=== PATIENT | male | born 1980 | race Hispanic/Latino ===

== ENCOUNTER 2022-03-11 17:05 | Emergency (ER) | payer SELFPAY ==
--- NOTE | 2022-03-11 17:35 | Emergency Department Report ---
ED General Adult HPI - General Chief complaint: Eye Problems Stated complaint: BI EYE SWELLING PUI?: No Time Seen by Provider: 03/11/22 17:30 Source: EMS Mode of arrival: Stretcher Limitations: No Limitations - History of Present Illness Initial comments: Patient is a 41-year-old male who presents emergency room with complaints of bilateral eye swelling. Patient states it started earlier today at 8 AM. Patient states he noticed that after waking up this morning. Patient states that he has uncontrolled blood pressure is not taking any medications for. Patient states he has pain in both eyes but patient was given Tylenol and he is not having any pain at this time.. Patient states he had a headache this morning with the Tylenol took care of it. Patient states he feels like his visual angulo are getting smaller. Patient denies fever and chills. Patient denies chest pain or shortness of breath. Patient denies headache. Patient denies trauma. Patient denies falling. Patient denies recent travel. Patient denies recent international travel. Patient denies exposure to the novel coronavirus. Patient denies sick contacts. Patient denies fever and chills. Patient denies cough. Patient denies diarrhea. Patient denies coming in contact with anybody with symptoms of the novel coronavirus. Patient is currently in shelter and brought to the emergency room by EMS. Report received from EMS. Patient has a shelter please officer at bedside. -: Sudden Severity scale (0 -10): 0 Quality: aching Improves with: medication Worsens with: none Associated Symptoms: denies other symptoms. denies: confusion, chest pain, cough, diaphoresis, fever/chills, headaches, loss of appetite, malaise, nausea/vomiting, rash, seizure, shortness of breath, syncope, weakness Treatments Prior to Arrival: other (Tylenol) - Related Data Allergies Allergy/AdvReac Type Severity Reaction Status Date / Time No Known Allergies Allergy Verified 03/11/22 17:26 ED Review of Systems ROS: Stated complaint: BI EYE SWELLING Other details as noted in HPI Constitutional: denies: chills, fever Eyes: denies: eye pain, eye discharge, vision change ENT: denies: ear pain, throat pain Respiratory: denies: cough, shortness of breath, wheezing Cardiovascular: denies: chest pain, palpitations Endocrine: no symptoms reported Gastrointestinal: denies: abdominal pain, nausea, diarrhea Genitourinary: denies: urgency, dysuria Musculoskeletal: denies: back pain, joint swelling, arthralgia Skin: denies: rash, lesions Neurological: denies: headache, weakness, paresthesias Psychiatric: denies: anxiety, depression Hematological/Lymphatic: denies: easy bleeding, easy bruising ED Past Medical Hx - Past Medical History Previous Medical History?: Yes Hx Hypertension: Yes - Surgical History Past Surgical History?: No - Family History Family history: no significant - Social History Smoking Status: Never Smoker Substance Use Type: None ED Physical Exam - General Limitations: No Limitations General appearance: alert - Head Head exam: Present: atraumatic, normocephalic - Eye Eye exam: Present: normal appearance, PERRL, periorbital swelling, periorbital tenderness Pupils: Present: normal accommodation - ENT ENT exam: Present: mucous membranes moist - Neck Neck exam: Present: normal inspection - Respiratory Respiratory exam: Present: normal lung sounds bilaterally. Absent: respiratory distress, wheezes, rales - Cardiovascular Cardiovascular Exam: Present: regular rate, normal rhythm. Absent: systolic murmur, diastolic murmur, rubs, gallop - GI/Abdominal GI/Abdominal exam: Present: soft, normal bowel sounds - Rectal Rectal exam: Present: deferred - Extremities Exam Extremities exam: Present: normal inspection - Back Exam Back exam: Present: normal inspection - Neurological Exam Neurological exam: Present: alert, oriented X3 - Psychiatric Psychiatric exam: Present: normal affect, normal mood - Skin Skin exam: Present: warm, dry, intact, normal color. Absent: rash ED Course Vital Signs 03/11/22 03/11/22 17:21 21:25 Temperature 98.4 F 98.0 F Pulse Rate 92 H 91 H Respiratory 16 18 Rate Blood Pressure 175/120 162/120 [Left] O2 Sat by Pulse 98 97 Oximetry - Reevaluation(s) Reevaluation #1: Patient has been accepted to another hospital. I discussed all results with patient. I discussed plan of care with patient. Patient agrees with plan of care and transfer. Patient will be transferred to the receiving hospital. 03/11/22 23:10 - Consultations Consultation #1: I discussed case with Dr. Tse, neurosurgery. Dr. Cheung recommends transfer and 10 mg of Decadron. 03/11/22 20:12 Consultation #2: After talking with multiple facilities. [facility] has accepted the patient, Dr. Baker accepted the patient be transferred ER to ER. 03/11/22 23:01 ED Medical Decision Making - Lab Data Result diagrams: 03/11/22 17:41 03/11/22 17:41 - Radiology Data Radiology results: report reviewed, image reviewed CT MAXILLOFACIAL WITHOUT CONTRAST INDICATION / CLINICAL INFORMATION: Bilateral periorbital edema. TECHNIQUE: All CT scans at this location are performed using CT dose reduction for ALARA by means of automated exposure control. COMPARISON: None available. FINDINGS: Innumerable abnormalities are identified. Subcutaneous masses are present in the scalp. The largest scalp lesion is in the right parietal region. Multiple masses are seen infiltrating the parotid glands. Lesions in the superior aspect of the maxillary sinuses are observed. Multiple intraorbital mass lesions are also identified. Many of these lesions are associated with bony remodeling of skull base neuroforamina. 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 There is expansion of the infraorbital nerve canals with remodeling of the orbital floors bilaterally. Multiple intraorbital mass lesions resulting in exophthalmos bilaterally.. Expansion of the foramen ovale and foramen rotundum is noted. There is expansion of the superior orbital fissures. FACIAL BONES: Bone remodeling is observed in response to the multiple neurofibromata alluded to above. There is no indication of facial fracture. GREENKEEPER SPACES: A large neurofibroma is seen between the pterygoid muscle and right mandibular ramus. Innumerable additional neurofibroma are present. SALIVARY GLANDS: Infiltrative changes and the parotid glands likely represent neurofibromata along the course of the facial nerve branches. Submandibular salivary glands have an unremarkable appearance. PARANASAL SINUSES: Masses protruding into the maxillary sinuses from the floors of the orbits are present secondary to infraorbital nerve neurofibromas. Paranasal sinuses are free from inflammatory mucosal disease. NASAL CAVITY: No abnormality ORBITS: As described above there is bilateral exophthalmos secondary to mul tiple orbital neurofibromata. TEMPORAL BONES:Visualized mastoid air cells and the middle ear cavities are normally pneumatized. VISUALIZED INTRACRANIAL STRUCTURES: No significant abnormality. IMPRESSION: 1. Bilateral exophthalmos secondary to multifocal intraorbital masses which almost certainly represent neurofibromata. 2. Neurofibromatosis type I with plexiform neurofibromas. CT HEAD WITHOUT CONTRAST INDICATION / CLINICAL INFORMATION: coates. neurofibromatosis. TECHNIQUE: All CT scans at this location are performed using CT dose reduction for ALARA by means of automated exposure control. COMPARISON: CT orbits/facial bones also dated 03/11/2022 FINDINGS: HEMORRHAGE: No evidence of intracranial hemorrhage or extra-axial fluid collection. EXTRA-AXIAL SPACES: Cortical sulci, sylvian fissures and basilar cisterns have an unremarkable appearance. VENTRICULAR SYSTEM: The third and lateral ventricles are of normal size and configuration. CEREBRAL PARENCHYMA: No areas of abnormal brain parenchymal attenuation are identified. There is no indication of recent infarction. MIDLINE SHIFT OR HERNIATION: There is no mass effect. CEREBELLUM / BRAINSTEM: Brainstem and cerebellum have an unremarkable appearance. MIDLINE STRUCTURES:No abnormalities of the pituitary gland or pineal region are identified. INTRACRANIAL VESSELS:No abnormalities are identified on this noncontrast head CT. ORBITS: Bilateral exophthalmos secondary to multiple mass lesions within the orbits. Please refer to CT facial bone report for a more complete description of these findings. SOFT TISSUES of HEAD: Large scalp mass likely represents the presence of a plexiform neurofibroma in the right parieto-occipital region. Similar findings are seen along the lateral margins of the forehead bilaterally. CALVARIUM: The calvarium has an unremarkable appearance. Evaluation of the skull base reveals a bony remodeling along the course of the cranial neuroforamina as described on CT facial bones/orbits dictated separately. PARANASAL SINUSES / MASTOID AIR CELLS: Mass is located in the upper portions the maxillary sinuses likely represent neurofibromata arising from the infraorbital nerves. Paranasal sinuses are free from inflammatory mucosal disease. ADDITIONAL FINDINGS: None. IMPRESSION: 1. No acute intracranial abnormality. 2. Neurofibromatosis type I. Please refer to CT orbits/facial bone report dictated separately. - Medical Decision Making Patient is a 41-year-old male who presents emergency room with eye swelling and visual changes. Patient had labs done which essentially markable. Patient had head CT and patient was CT and it was positive for multiple neurofibromas within the orbits and skull and multiple other sites. I discussed these findings with our neurosurgeon and he is neurosurgeon, Dr. Tse recommended transfer to a facility with neuro-ophthalmology and neurosurgery. I discussed this with [facility] for an extended amount of time and finally found a facility at [facility] to accept the patient. The ER attending, Dr. Baker has accepted the patient to be transferred ER to ER. Patient stable for transfer. Critical care time documented due to the multiple reassessments, prolonged time at the bedside, interpretation of diagnostics and labs receiving hospital. - Differential Diagnosis Periorbital edema, periorbital cellulitis, eye swelling, visual changes Critical Care Time: Yes Critical care time in (mins) excluding proc time.: 80 Critical care attestation.: If time is entered above; I have spent that time in minutes in the direct care of this critically ill patient, excluding procedure time. Critical Care Time: 80 minutes ED Disposition Clinical Impression: Multiple neurofibromas in neurofibromatosis, Visual changes, Blurry vision, Eye swelling, bilateral Optic nerve compression Qualifiers: Laterality: bilateral Qualified Code(s): H47.093 - Other disorders of optic nerve, not elsewhere classified, bilateral Headache Qualifiers: Headache type: unspecified Headache chronicity pattern: acute headache Int ractability: not intractable Qualified Code(s): R51.9 - Headache, unspecified Disposition: 02 [facility] Is pt being admited?: No Does the pt Need Aspirin: No Condition: Critical Time of Disposition: 23:09
[2022-03-11 18:07] LABS: Basophils % (Auto) 0.3 % (0.0-1.8); Eosinophils % (Auto) 0.1 % (0.0-4.3); Hematocrit 44.4 % (35.5-45.6); Hemoglobin 14.7 gm/dl (11.8-15.2); Lymphocytes # (Auto) 1.5 K/mm3 (1.2-5.4); Lymphocytes % (Auto) 17.1 % (13.4-35.0); Mean Corpuscular HGB Conc 33 % (32-34); Mean Corpuscular Volume 88 fl (84-94); Monocytes # (Auto) 0.4 K/mm3 (0.0-0.8); Monocytes % (Auto) 4.1 % (0.0-7.3); Platelet Count 264 K/mm3 (140-440); Red Blood Count 5.05 M/mm3 (3.65-5.03); Red Cell Distribution Width 12.8 % (13.2-15.2)
[2022-03-11 18:23] LABS: Alanine Aminotransferase 23 units/L (7-56); Albumin 4.5 g/dL (3.9-5); BUN/Creatinine Ratio 17; Blood Urea Nitrogen 15 mg/dL (9-20); Calcium 9.8 mg/dL (8.4-10.2); Hemolysis Index 16
--- NOTE | 2022-03-11 19:31 | Cat Scan Report ---
CT MAXILLOFACIAL WITHOUT CONTRAST INDICATION / CLINICAL INFORMATION: Bilateral periorbital edema. TECHNIQUE: All CT scans at this location are performed using CT dose reduction for ALARA by means of automated e xposure control. COMPARISON: None available. FINDINGS: Innumerable abnormalities are identified. Subcutaneous masses are present in the scalp. The largest s calp lesion is in the right parietal region. Multiple masses are seen infiltrating the parotid glands . Lesions in the superior aspect of the maxillary sinuses are observed. Multiple intraorbital mass le sions are also identified. Many of these lesions are associated with bony remodeling of skull base ne uroforamina. These findings indicate a diagnosis of neurofibromatosis type I (von Recklinghausen dise ase). There is expansion of the infraorbital nerve canals with remodeling of the orbital floors bilat erally. Multiple intraorbital mass lesions resulting in exophthalmos bilaterally.. Expansion of the f oramen ovale and foramen rotundum is noted. There is expansion of the superior orbital fissures. FACIAL BONES: Bone remodeling is observed in response to the multiple neurofibromata alluded to above . There is no indication of facial fracture. NUCLEAR REACTOR OPERATOR SPACES: A large neurofibroma is seen between the pterygoid muscle and right mandibular roger us. Innumerable additional neurofibroma are present. SALIVARY GLANDS: Infiltrative changes and the parotid glands likely represent neurofibromata along th e course of the facial nerve branches. Submandibular salivary glands have an unremarkable appearance. PARANASAL SINUSES: Masses protruding into the maxillary sinuses from the floors of the orbits are pre sent secondary to infraorbital nerve neurofibromas. Paranasal sinuses are free from inflammatory muco jenny disease. NASAL CAVITY: No abnormality ORBITS: As described above there is bilateral exophthalmos secondary to multiple orbital neurofibroma ta. TEMPORAL BONES:Visualized mastoid air cells and the middle ear cavities are normally pneumatized. VISUALIZED INTRACRANIAL STRUCTURES: No significant abnormality. IMPRESSION: 1. Bilateral exophthalmos secondary to multifocal intraorbital masses which almost certainly repres ent neurofibromata. 2. Neurofibromatosis type I with plexiform neurofibromas. Signer Name: Justin Arndt MD Signed: 03/11/2022 7:27 PM Workstation Name: [id number]
[2022-03-11] MEDS ORDERED: dexAMETHasone 20 MG/5 ML VIAL IV ONE (20:11)
--- NOTE | 2022-03-11 21:06 | Cat Scan Report ---
CT HEAD WITHOUT CONTRAST INDICATION / CLINICAL INFORMATION: coates. neurofibromatosis. TECHNIQUE: All CT scans at this location are performed using CT dose reduction for ALARA by means of automated e xposure control. COMPARISON: CT orbits/facial bones also dated 03/11/2022 FINDINGS: HEMORRHAGE: No evidence of intracranial hemorrhage or extra-axial fluid collection. EXTRA-AXIAL SPACES: Cortical sulci, sylvian fissures and basilar cisterns have an unremarkable appear ance. VENTRICULAR SYSTEM: The third and lateral ventricles are of normal size and configuration. CEREBRAL PARENCHYMA: No areas of abnormal brain parenchymal attenuation are identified. There is no i ndication of recent infarction. MIDLINE SHIFT OR HERNIATION: There is no mass effect. CEREBELLUM / BRAINSTEM: Brainstem and cerebellum have an unremarkable appearance. MIDLINE STRUCTURES:No abnormalities of the pituitary gland or pineal region are identified. INTRACRANIAL VESSELS:No abnormalities are identified on this noncontrast head CT. ORBITS: Bilateral exophthalmos secondary to multiple mass lesions within the orbits. Please refer to CT facial bone report for a more complete description of these findings. SOFT TISSUES of HEAD: Large scalp mass likely represents the presence of a plexiform neurofibroma in the right parieto-occipital region. Similar findings are seen along the lateral margins of the forehe ad bilaterally. CALVARIUM: The calvarium has an unremarkable appearance. Evaluation of the skull base reveals a bony remodeling along the course of the cranial neuroforamina as described on CT facial bones/orbits dicta acosta separately. PARANASAL SINUSES / MASTOID AIR CELLS: Mass is located in the upper portions the maxillary sinuses li vivi represent neurofibromata arising from the infraorbital nerves. Paranasal sinuses are free from i nflammatory mucosal disease. ADDITIONAL FINDINGS: None. IMPRESSION: 1. No acute intracranial abnormality. 2. Neurofibromatosis type I. Please refer to CT orbits/facial bone report dictated separately. Signer Name: Justin Arndt MD Signed: 03/11/2022 9:02 PM Workstation Name: [id number]
[2022-03-12 00:59] VITALS: BP 148/112
== END 2022-03-12 00:44 | disposition short-term general hospital (02) ==
LOC: ED 17:05
DX: Q85.00 Neurofibromatosis, unspecified (principal); H57.89 Other specified disorders of eye and adnexa; H53.8 Other visual disturbances; H47.093 Other disorders of optic nerve, not elsewhere classified, bilateral; R51.9 Headache, unspecified; I10 Essential (primary) hypertension; Z79.899 Other long term (current) drug therapy
CPT/HCPCS: 36415; 70450; 70480; 80053; 85025; 96374; 99291; 99292; J1100; 99285